=== PATIENT | male | born 1960 | race African-American/Black ===

== ENCOUNTER 2017-03-29 15:32 | Emergency (ER) | payer OTHER ==
[~2017-03-29] VITALS: Ht 175.3 cm; Wt 89.0 kg
[2017-03-29 18:20] VITALS: BP 127/84
== END 2017-03-29 19:00 | disposition home or self-care (01) ==
LOC: ER 18:58
DX: S99.812A Other specified injuries of left ankle, initial encounter (principal); X58.XXXA Exposure to other specified factors, initial encounter; Y93.89 Activity, other specified; Y92.89 Other specified places as the place of occurrence of the external cause
CPT/HCPCS: 99283